=== PATIENT | female | born 1990 | race Caucasian/White ===

== ENCOUNTER 2017-01-31 18:54 | Emergency (ER) | payer OTHER ==
[2017-01-31 19:04] VITALS: BP 128/85; PULSE 67; RESP 18; TEMP 98; O2SAT 97
[2017-01-31 19:16] LABS: COLOR YELLOW; LEUKOCYTE ESTERASE,URINE NEGATIVE (NEGATIVE); NITRITE,URINE NEGATIVE (NEGATIVE)
[2017-01-31 19:33] LABS: RBC,URINE 0-1 /hpf (0-3)
[2017-01-31 19:34] LABS: BACTERIA 1+ /hpf (NONE SEEN)
[2017-01-31] MEDS ORDERED: NS 1,000 ML IV ONE (19:58)
[2017-01-31 20:30] LABS: ANION GAP 13 mEq/L (8-16); CALCIUM 8.7 mg/dL (8.5-10.4); CARBON DIOXIDE 25 mEq/l (22-31); CHLORIDE 97 mEq/L (97-110); CREATININE 0.6 mg/dL (0.6-1.0); GLOMERULAR FILTRATION RATE > 60; GLUCOSE 81 mg/dL (70-100); POTASSIUM 3.9 mEq/L (3.5-5.2); SODIUM 135 mEq/L (134-144)
[2017-01-31] MEDS ORDERED: OXYCODONE/APAP 5/325MG PREPACK#4 BTL TAKEHOME ONE (20:41)
[2017-01-31] MEDS ORDERED: KETOROLAC 15 MG/1 ML SDV IVP ONE (20:41)
--- NOTE | 2017-01-31 20:45 | UCPHY ---
H & P Patient Type: New Chief Complaint Nursing Narrative: Visiting from [place] for work Dx with Kidney Rt stone last Sun. has CT and XR done - took last oxcodone this am - inc. pain since then - states she needs more pain meds- leaving Sunday Time Seen by Provider: 01/31/17 19:44 HPI/ROS: This patient is visiting from [place] until Sunday. She is in town for business and explains that she was diagnosed with a right ureteral stone 6 mm in size over week ago in a [facility] emergency department. She is also told she had a small kidney stone on the left side that was not in the ureter. She was started on Flomax and oxycodone. She did follow up with the urologist after the emergency department visit his skeptical as to whether she would passed a 6 mm stone and she will return to see him next week in follow-up. She ran out of oxycodone complains of 6/10 flank pain. She is concerned that the pain may increase and with severe pain last week she had associated vomiting. Her last episode of emesis was 3 days prior to arrival. She has not taken any ibuprofen Percocet within the last 6 hours. ROS: No fevers or chills. No other constitutional symptoms. HEENT: No complaints pulmonary: No complaints cardiovascular: No lightheadedness GI: No nausea vomiting today. She does report constipation with no bowel movements for the last 4 days or so. She usually goes every 2 days or so. She has mild abdominal discomfort but no significant pain. : No hematuria. Last menstrual period was normal timing. 10 point ROS is otherwise negative Source: Patient Exam Limitations: No limitations - Personal History LMP (Females 10-55): 15-21 Days Ago - Medical/Surgical History Other PMH: denies - Family History Significant Family History: Other (Her mother had kidney stones at a young age as well) - Social History Smoking Status: Never smoked Alcohol Use: Rarely Drug Use: None - Physical Exam Exam: General Appearance: Pleasant 26-year-old female Alert, no distress. Eyes: Pupils equal and round no pallor or injection. Pupils are 4 mm in size ENT, Mouth: Mucous membranes moist. Respiratory: There are no retractions, lungs are clear to auscultation. Cardiovascular: Regular rate and rhythm. Gastrointestinal: Normoactive, soft, nontender Back: She has right-sided CVA tenderness moderate to exquisite Neurological: Alert with no focal deficits Skin: Warm and dry, no rashes. Musculoskeletal: Neck is supple nontender. Extremities are symmetrical, full range of motion. Psychiatric: Mood and affect normal DIFFERENTIAL DIAGNOSIS: After history and physical exam differential diagnosis was considered for renal colic attributable to likely persistent ureteral stone , UTI, Constitutional: Initial Vital Signs Temperature (C) 36.6 C 01/31/17 18:59 Heart Rate 67 01/31/17 18:59 Respiratory Rate 18 01/31/17 18:59 Blood Pressure 128/85 H 01/31/17 18:59 O2 Sat (%) 97 01/31/17 18:59 O2 Delivery Mode Room Air Allergies/Adverse Reactions: No Known Allergies Allergy (Unverified 01/31/17 18:58) Home Medications: Medication Instructions Recorded Docusate Sodium [Colace 100 MG (*)] 100 mg PO BID #20 cap 01/31/17 oxyCODONE CR 01/31/17 oxyCODONE/APAP 5/325 [Percocet 1 - 2 tab PO Q4-6PRN PRN #16 tab 01/31/17 5/325 (*)] Medical Decision Making ED Course/Re-evaluation: Studies: Urinalysis: Microscopic hematuria without other abnormal findings. Urine is negative Basic metabolic panel: Normal creatinine Course: IV normal saline bolus, Toradol 50 mg IV with partial relief Percocet home pack Counseled her to continue her Flomax. Provided a small number Percocet script to get her through the next 2 days. She will follow up with her urologist in [place]. She understands the need to go the emergency department for any significant worsening of her symptoms despite the treatment plan. We ruled out renal insufficiency or failure. Rule out - Data Points Laboratory Results: Laboratory Results 01/31/17 20:14 01/31/17 01/31/17 01/31/17 20:14 19:05 19:05 Sodium 135 mEq/L mEq/L (134-144) Potassium 3.9 mEq/L mEq/L (3.5-5.2) Chloride 97 mEq/L mEq/L (97-110) Carbon Dioxide 25 mEq/l mEq/l (22-31) Anion Gap 13 mEq/L mEq/L (8-16) BUN 6 mg/dL L mg/dL (7-23) Creatinine 0.6 mg/dL mg/dL (0.6-1.0) Estimated GFR > 60 Glucose 81 mg/dL mg/dL (70-100) Calcium 8.7 mg/dL mg/dL (8.5-10.4) Urine Color YELLOW Urine Appearance CLEAR Urine pH 7.0 (5.0-7.5) Ur Specific [place] <= 1.005 (1.002-1.030) Urine Protein NEGATIVE (NEGATIVE) Urine Ketones NEGATIVE (NEGATIVE) Urine Blood TRACE H (NEGATIVE) Urine Nitrate NEGATIVE (NEGATIVE) Urine Bilirubin NEGATIVE (NEGATIVE) Urine Urobilinogen 0.2 EU EU (0.2-1.0) Ur Leukocyte Esterase NEGATIVE (NEGATIVE) Urine RBC 0-1 /hpf /hpf (0-3) Urine WBC 1-3 /hpf /hpf (0-3) Ur Epithelial Cells 1+ /lpf /lpf (NONE-1+) Urine Bacteria 1+ /hpf H /hpf (NONE SEEN) Ur Culture Indicated? NOT INDICATED (NI) Urine Glucose NEGATIVE (NEGATIVE) Urine Test NEGATIVE Medications Given: Discontinued Medications Sodium Chloride (Ns) 1,000 mls @ 0 mls/hr IV ONCE ONE PRN Reason: Wide Open Stop: 01/31/17 19:59 Last Admin: 01/31/17 20:00 Dose: 1,000 mls Ketorolac Tromethamine (Toradol) 15 mg IVP EDNOW ONE Stop: 01/31/17 20:42 Last Admin: 01/31/17 20:45 Dose: 15 mg Oxycodone/Acetaminophen (Percocet 5/325mg Prepack#4) 1 btl TAKEHOME EDNOW ONE Stop: 01/31/17 20:42 Last Admin: 01/31/17 20:45 Dose: 1 btl Departure - Departure Disposition: Home, Routine, Self-Care Clinical Impression: Renal colic on right side, Microscopic hematuria Constipation Qualifiers: Constipation type: drug induced constipation Qualified Code(s): K59.03 - Drug induced constipation Condition: Good Instructions: Oxycodone/Acetaminophen (By mouth), Constipation (ED), Ureteral Stones (ED) Additional Instructions: Diagnosis: 1. Kidney pain and hematuria 3. Constipation Plan: Drink plenty fluids Colace stool softener to help with constipation also, recommend tbsp of olive oil mixed in food daily and Fleet enemas. Also gentle massage belly as described. Tylenol or Percocet for pain control as needed No driving, alcohol or come Percocet Continue your Flomax. Zofran if needed for nausea Follow up with your urologist upon return to [place] for any ongoing symptoms. Referrals: NONE *PRIMARY CARE P,. [Primary Care Provider] - As per Instructions Prescriptions: Docusate Sodium [Colace 100 MG (*)] 100 mg PO BID #20 cap oxyCODONE/APAP 5/325 [Percocet 5/325 (*)] 1 - 2 tab PO Q4-6PRN PRN #16 tab PRN Reason: Pain - PQRS PQRS Measurement: NA
== END 2017-01-31 21:07 | disposition home or self-care (01) ==
LOC: CED 18:54
DX: N23 Unspecified renal colic (principal); R31.29 Other microscopic hematuria; K59.03 Drug induced constipation
CPT/HCPCS: 80048-PO; 81003-PO; 81015-PO; 81025-PO; 96361-PO; 96374-PO; 99204-PO; G0463-PO; J1885